=== PATIENT | female | born 1985 | race Hispanic/Latino ===

== ENCOUNTER 2022-02-25 22:39 | Emergency (ER) | payer BC ==
[2022-02-25] MEDS ORDERED: Bacitracin 1 PK ONE (23:11)
[2022-02-25] MEDS ORDERED: Lidocaine 1% (PF) 30 ML VIAL ONE (23:12)
[2022-02-25] MEDS ORDERED: Sulfameth/Trimethoprim DS 800-160mg TAB ONE (23:15)
== END 2022-02-26 00:08 | disposition home or self-care (01) ==
LOC: CSHERS 22:39
DX: S61.411A Laceration without foreign body of right hand, initial encounter (principal); W26.8XXA Contact with other sharp object(s), not elsewhere classified, initial encounter
CPT/HCPCS: 12001; J2001